=== PATIENT | male | born 1940 | race Caucasian/White ===

== ENCOUNTER → 2019-03-21 07:08 | Outpatient (CLI) | payer OTHER, SELFPAY ==
--- NOTE | 2019-03-21 | DI.RAD.S_ITS ---
PROCEDURE: XR CHEST 2V INDICATIONS: Encounter for general adult medical examination without abno TECHNIQUE: 2 views of the chest were acquired. COMPARISON: None. FINDINGS: Surgical changes and devices: None. Lungs and pleura: Lungs are clear. No pleural effusions or pneumothorax. Mediastinum: Mediastinal contours are normal. Heart size is normal. Bones and chest wall: Mild compression deformity of T9 and T10. No suspicious bony abnormalities. Soft tissues appear unremarkable. IMPRESSION: 1. No acute cardiopulmonary disease. 2. Mild compression deformity of T9 and T10. Dictated by: Sigifredo Benitez M.D. on 03/21/2019 at 9:07 Approved by: Sigifredo Benitez M.D. on 03/21/2019 at 9:08
--- NOTE | 2019-03-21 | DI.ECHO.S_ITS ---
[facility]+ [facility] +---------+ : : [address] : : : [place], [place] : : : : [id number] : : : : Phone: [phone]+ Echocardiogram Report + + :Name: KOREY CONDE Study Date: 03/21/2019 Height: 70 in : :[facility] Weight: 195 lb : : Gender: Male BSA: 2.1 m2 : :: 1940 Age: 78 yrs BP: 142/84 mmHg: :Reason For Study: AFIB : : Performed By: [facility] Staff : :Referring: [email or web address] : + + Interpretation Summary 1) Normal left ventricular size, thickness, wall motion, and systolic function (EF 60-65%). 2) Mildly increased right ventricular size with normal function. 3) No significant valvular abnormalities. 4) No prior Echo available for comparison. Procedure: A two-dimensional transthoracic echocardiogram with color flow and Doppler was performed. The study quality was technically difficult. There is no prior echocardiogram noted for this patient. The patient was in normal sinus rhythm during the exam. Left Ventricle: The left ventricle is normal in size. There is normal left ventricular wall thickness. Left ventricular systolic function is normal. The ejection fraction is estimated to be 60-65%. Left ventricular wall motion is normal. Diastolic parameters suggest a relaxation abnormality of the left ventricle, consistent with probable normal filling pressures. Right Ventricle: The right ventricle is mildly dilated. The right ventricular systolic function is normal. Atria: The left atrium is not well visualized. Right atrial size is normal. The interatrial septum is intact with no evidence for an atrial septal defect. Mitral Valve: The mitral valve leaflets appear mildly thickened, but open well. There is no mitral regurgitation noted. Aortic Valve: The aortic valve opens well. The aortic valve is grossly normal. There is no aortic valve stenosis. There is trace aortic regurgitation. Tricuspid Valve: The tricuspid valve is normal in structure and function. There is trace tricuspid regurgitation. Pulmonary artery pressures cannot be estimated because of the lack of a measurable TR jet velocity. Pulmonic Valve: The pulmonic valve is not well visualized. Great Vessels: The aortic root is mildly dilated. The ascending aorta could not be visualized. The pulmonary artery is normal size. The IVC is of normal diameter and collapses greater than 50% with a sniff. This suggests a low right atrial pressure of 3 mm Hg. Pericardium/ Pleura There is no pericardial effusion. There is no pleural effusion. MMode/2D Measurements & Calculations LVIDd: 4.2 cm LVOT diam: 2.1 cm LVIDs: 2.8 cm Ao root diam: 3.8 cm FS: 32.3 % EPSS: 0.56 cm IVSd: 1.3 cm LVPWd: 1.2 cm LV barone. diameter/BSA (cm/m^2): 2.0 LV sys. diameter/BSA (cm/m^2): 1.4 LA A4 area: 16.7 cm2 RA long axis: 4.6 cm LA length (vol): 5.1 cm RA area: 11.6 cm2 RA vol: 24.8 ml RA : 12.0 ml/m2 TAPSE: 2.2 cm Doppler Measurements & Calculations Ao V2 max: 98.5 cm/sec MV E max fabricio: 45.4 cm/sec Ao V2 mean: 65.3 cm/sec MV A max fabricio: 82.5 cm/sec Ao max P.9 mmHg MV E/A: 0.55 Ao mean P.1 mmHg Med Peak E' Fabricio: 3.8 cm/sec Ao V2 VTI: 20.6 cm E/E' med: 11.9 Lat Peak E' Fabricio: 6.3 cm/sec E/E' lat: 7.2 E/e' average: 9.5 MV dec time: 0.29 sec Reading Physician:01:[id number] PM
== END ==
PROVIDERS: Visit Provider Family Medicine
DX: Z00.00 Encounter for general adult medical examination without abnormal findings (principal); I48.91 Unspecified atrial fibrillation
CPT/HCPCS: 71046; 93306